=== PATIENT | female | born 1945 | race Caucasian/White ===

== ENCOUNTER 2019-03-15 22:16 | Inpatient (IN) | payer MEDICAID ==
[~2019-03-15] VITALS: Ht 154.9 cm; Wt 91.2 kg
[2019-03-15 23:21] LABS: BASOPHIL % 0.4 % (0-2); PLATELET COUNT 258 x10^3mcL (130-400); RED CELL DISTRIBUTION WIDTH 13.5 % (11.5-14.5)
[2019-03-15 23:29] LABS: CALCIUM 8.9 mg/dL (8.5-10.1); CARBON DIOXIDE 26.8 mmol/L (21-32); CHLORIDE SERUM 101 mmol/L (98-107); CREATININE SERUM 0.7 mg/dL (0.6-1.0); GLUCOSE SERUM 140 mg/dL (74-106); POTASSIUM SERUM 3.8 mmol/L (3.5-5.1); SODIUM SERUM 136 mmol/L (136-145)
[2019-03-15 23:34] LABS: ALBUMIN 3.8 g/dL (3.4-5.0); ALKALINE PHOSPHATASE 91 U/L (46-116); ALT/SGPT 30 U/L (14-59); AST/SGOT 23 U/L (15-37); BILIRUBIN TOTAL 0.5 mg/dL (0.20-1.00); TOTAL PROTEIN, SERUM 8.1 g/dL (6.4-8.2)
[2019-03-16] MEDS ORDERED: METOPROLOL SUC100 M2 PO (00:26)
[2019-03-16] MEDS ORDERED: LOSARTAN POTASS50 M1 PO (00:27)
[2019-03-16] MEDS ORDERED: bezafibrate PO (00:53)
[2019-03-16] MEDS ORDERED: AMARYL2 MG PO (00:54)
[2019-03-16 00:59] VITALS: BP 137/69
[2019-03-16 01:06] VITALS: Ht 154.9 cm; Wt 91.2 kg
[2019-03-16 01:10] LABS: CHOLESTEROL 193 mg/dL (<200); PHOSPHOROUS 4.2 mg/dL (2.5-4.9)
[2019-03-16 01:11] LABS: CHOLESTEROL/HDL RATIO 6.9; HDL CHOLESTEROL 28 mg/dL (40-60); TRIGLYCERIDES 406 mg/dL (<150)
[2019-03-16 06:01] VITALS: BP 140/77
[2019-03-16 06:53] LABS: BASOPHIL % 0.3 % (0-2); PLATELET COUNT 243 x10^3mcL (130-400); RED CELL DISTRIBUTION WIDTH 12.6 % (11.5-14.5)
[2019-03-16 07:05] LABS: CALCIUM 8.6 mg/dL (8.5-10.1); CARBON DIOXIDE 24.7 mmol/L (21-32); CHLORIDE SERUM 103 mmol/L (98-107); CREATININE SERUM 0.7 mg/dL (0.6-1.0); GLUCOSE SERUM 139 mg/dL (74-106); POTASSIUM SERUM 4.1 mmol/L (3.5-5.1); SODIUM SERUM 140 mmol/L (136-145)
[2019-03-16 08:58] VITALS: BP 156/76
[2019-03-16 12:44] VITALS: BP 130/56
[2019-03-16 13:36] VITALS: BP 145/74
[2019-03-16 16:34] VITALS: BP 132/64
== END 2019-03-16 18:19 | disposition home or self-care (01) | DRG 203 ==
LOC: ED 22:16 → DU 03-16 00:18
PROVIDERS: ADMIT Family Medicine
DX: M94.0 Chondrocostal junction syndrome [Tietze] (principal); E11.9 Type 2 diabetes mellitus without complications; I10 Essential (primary) hypertension; E78.5 Hyperlipidemia, unspecified; Z68.38 Body mass index [BMI] 38.0-38.9, adult; Z79.84 Long term (current) use of oral hypoglycemic drugs
CPT/HCPCS: 82962; J7030; Q0092